=== PATIENT | female | born 1955 | race Caucasian/White ===

== ENCOUNTER 2016-12-21 14:17 | Emergency (ER) | payer OTHER ==
[~2016-12-21] VITALS: Ht 162.6 cm; Wt 52.2 kg
[2016-12-21 16:11] VITALS: BP 127/80
[2016-12-21] MEDS ORDERED: TETANUS-DIPTH-ACEL PERTUSSIS 0.5ML SYRG IM ONE (17:00)
== END 2016-12-21 17:02 | disposition home or self-care (01) ==
LOC: ER 14:22
DX: S61.111A Laceration without foreign body of right thumb with damage to nail, initial encounter (principal); S61.310A Laceration without foreign body of right index finger with damage to nail, initial encounter; S61.312A Laceration without foreign body of right middle finger with damage to nail, initial encounter; F19.90 Other psychoactive substance use, unspecified, uncomplicated; W23.0XXA Caught, crushed, jammed, or pinched between moving objects, initial encounter; Y93.89 Activity, other specified; Y92.89 Other specified places as the place of occurrence of the external cause; Y99.8 Other external cause status
CPT/HCPCS: 90471; 90715

== ENCOUNTER → 2021-11-04 | Outpatient (CLI) | payer BC ==
[2021-11-04 11:16] LABS: Basophils # (auto) 0 10 ^3/uL (0-0.2); Basophils % (auto) 0.4 % (0.0-2.0); Eosinophils # (auto) 0.1 10 ^3/uL (0-0.8); Hematocrit 48.8 % (36.0-46.0); Hemoglobin 16.1 g/dL (12.2-16.2); Lymphocytes # (auto) 2.6 10 ^3/uL (0.4-5.4); Lymphocytes % (auto) 36.9 % (10.0-50.0); Mean Corpuscular Hemoglobin 29.5 pg (28.0-32.0); Mean Corpuscular Volume 89.4 fL (80.0-100.0); Monocytes # (auto) 0.6 10 ^3/uL (0-1.3); Monocytes % (auto) 8.8 % (0.0-12.0); Neutrophils # (auto) 3.7 10 ^3/uL (1.6-8.6); Neutrophils % (auto) 52.9 % (37.0-80.0); Nucleated Red Blood Cells % 0.1 %; Red Blood Cells 5.45 10^6/uL (4.0-5.20); Red Cell Distribution Width 14.6 % (11.8-14.3); White Blood Cell 7.1 10^3/uL (4.4-10.8)
[2021-11-04 12:19] LABS: Albumin 3.6 g/dL (3.4-5.0); Calcium 9.2 mg/dL (8.5-10.1); Potassium 3.9 mmol/L (3.5-5.1)
[2021-11-04 12:24] LABS: Bilirubin, Total 0.7 mg/dL (0.2-1.0); Total Protein 7.1 g/dL (6.4-8.2)
== END | disposition home or self-care (01) ==
LOC: LAB 10:13
DX: R10.13 Epigastric pain (principal)
CPT/HCPCS: 36415; 80053; 82150; 83690; 85025

== ENCOUNTER 2022-11-11 02:49 | Emergency (ER) | payer BC ==
[~2022-11-11] VITALS: Ht 162.6 cm; Wt 51.0 kg
[2022-11-11 05:02] VITALS: BP 127/80
[2022-11-11] MEDS ORDERED: ACE3T PO (05:10)
[2022-11-11] MEDS ORDERED: HYDROcodone-ACET 5/325MG TAB PO ONE (05:15)
[2022-11-11] MEDS ORDERED: ONDANSETRON ODT 4 MG TAB PO ONE (05:15)
== END 2022-11-11 06:10 | disposition home or self-care (01) ==
LOC: ER 02:49
DX: S82.54XA Nondisplaced fracture of medial malleolus of right tibia, initial encounter for closed fracture (principal); F41.9 Anxiety disorder, unspecified; F17.210 Nicotine dependence, cigarettes, uncomplicated; W18.39XA Other fall on same level, initial encounter; Y93.89 Activity, other specified; Y92.89 Other specified places as the place of occurrence of the external cause; Y99.8 Other external cause status
CPT/HCPCS: 29515; 73610; 73630; 99284; Q0162

== ENCOUNTER 2023-02-04 21:34 | Inpatient (IN) | payer BC, MEDICARE ==
[~2023-02-04] VITALS: Ht 162.6 cm; Wt 57.5 kg
[~2023-02-04 21:34] MED LIST: ACE3T PO
[2023-02-04 22:30] VITALS: PULSE 78; RESP 20; O2SAT 93
[2023-02-04 22:35] LABS: Basophils # (auto) 0 10 ^3/uL (0-0.2); Basophils % (auto) 0.1 % (0.0-2.0); Eosinophils # (auto) 0.1 10 ^3/uL (0-0.8); Eosinophils % (auto) 0.8 % (0.0-7.0); Hematocrit 43.4 % (36.0-46.0); Hemoglobin 14.6 g/dL (12.2-16.2); Lymphocytes # (auto) 2.2 10 ^3/uL (0.4-5.4); Lymphocytes % (auto) 21.8 % (10.0-50.0); Mean Corpuscular Hgb Conc. 33.7 g/dL (32.0-36.0); Mean Corpuscular Volume 89.2 fL (80.0-100.0); Monocytes # (auto) 0.7 10 ^3/uL (0-1.3); Neutrophils # (auto) 7.1 10 ^3/uL (1.6-8.6); Neutrophils % (auto) 70.3 % (37.0-80.0); Red Blood Cells 4.87 10^6/uL (4.0-5.20); Red Cell Distribution Width 14.7 % (11.8-14.3); White Blood Cell 10.1 10^3/uL (4.4-10.8)
[2023-02-04 22:54] LABS: Alanine Aminotransferase 24 U/L (7-40); Albumin 4.1 g/dL (3.2-4.8); Alkaline Phosphatase 56 U/L (46-116); Anion Gap 5 (5-15); Aspartate Aminotransferase 28 U/L (13-40); BUN/Creatinine Ratio 20.6 (10.0-20.0); Bilirubin, Total 0.3 mg/dL (0.2-1.0); Blood Urea Nitrogen 14 mg/dL (9-23); Calcium 9.1 mg/dL (8.5-10.1); Carbon Dioxide 26 mmol/L (20-30); Chloride 110 mmol/L (98-107); Glucose 129 mg/dL (74-106); INR 0.99 (0.9-1.15); Partial Thromboplastin Time 24.8 SEC (24.5-34.5); Prothrombin Time 10.4 sec (9.3-11.8); Sodium 141 mmol/L (136-145); Total Protein 6.5 g/dL (5.7-8.2)
[2023-02-04] MEDS ORDERED: MORPHINE SULFATE 4 MG/ML SYR/VIAL IV ONE (23:15)
[2023-02-04] MEDS ORDERED: ONDANSETRON HCL 4 MG/2 ML VIAL IV ONE (23:15)
[2023-02-05] MEDS ORDERED: DOCUSATE SOD 100 MG CAP PO PRN (00:45)
[2023-02-05] MEDS ORDERED: ONDANSETRON HCL 4 MG/2 ML VIAL IV PRN (00:45)
[2023-02-05] MEDS: SODIUM CHLORIDE 0.9% 1,000 ML IV SCH ×4 (01:40→20:46)
[2023-02-05] MEDS: ENOXAPARIN SOD 40 MG/0.4 ML SYRINGE SC SCH ×2 (01:40→21:27)
[2023-02-05] MEDS: MORPHINE SULFATE INJ 2 MG/ml SYRG IV PRN ×3 (01:41→14:45)
[2023-02-05] MEDS ORDERED: MORPHINE SULFATE INJ 2 MG/ml SYRG IV PRN (03:30)
[2023-02-05] MEDS ORDERED: NITROGLYCERIN 0.4 MG SL TAB SL PRN (03:30)
[2023-02-05 06:43] LABS: Basophils # (auto) 0 10 ^3/uL (0-0.2); Basophils % (auto) 0.1 % (0.0-2.0); Eosinophils # (auto) 0 10 ^3/uL (0-0.8); Eosinophils % (auto) 0.2 % (0.0-7.0); Hematocrit 40.1 % (36.0-46.0); Hemoglobin 13.5 g/dL (12.2-16.2); Lymphocytes # (auto) 2.1 10 ^3/uL (0.4-5.4); Lymphocytes % (auto) 24.8 % (10.0-50.0); Mean Corpuscular Hemoglobin 30.1 pg (28.0-32.0); Mean Corpuscular Hgb Conc. 33.8 g/dL (32.0-36.0); Monocytes # (auto) 0.9 10 ^3/uL (0-1.3); Monocytes % (auto) 10.6 % (0.0-12.0); Neutrophils # (auto) 5.4 10 ^3/uL (1.6-8.6); Neutrophils % (auto) 64.3 % (37.0-80.0); Red Cell Distribution Width 14.4 % (11.8-14.3); White Blood Cell 8.5 10^3/uL (4.4-10.8)
[2023-02-05 07:08] LABS: Alanine Aminotransferase 20 U/L (7-40); Albumin 3.6 g/dL (3.2-4.8); Alkaline Phosphatase 54 U/L (46-116); Anion Gap 7 (5-15); Aspartate Aminotransferase 18 U/L (13-40); BUN/Creatinine Ratio 20.8 (10.0-20.0); Blood Urea Nitrogen 11 mg/dL (9-23); Calcium 8.6 mg/dL (8.7-10.4); Carbon Dioxide 26 mmol/L (20-30); Chloride 108 mmol/L (98-107); Glucose 120 mg/dL (74-106); Sodium 141 mmol/L (136-145)
[2023-02-05 07:09] LABS: Bilirubin, Total 0.5 mg/dL (0.2-1.0); Total Protein 5.8 g/dL (5.7-8.2)
[2023-02-05 07:45] VITALS: PULSE 77; RESP 16; O2SAT 97
[2023-02-05 12:21] LABS: Urine Bacteria NONE SEEN /hpf (None Seen); Urine Blood 2+ /uL (Negative); Urine Clarity Clear (Clear); Urine Color Yellow (Yellow); Urine Mucus FEW (None Seen); Urine Protein, UAD TRACE (Negative); Urine Specific Gravity 1.024 (1.001-1.035); Urine Urobilinogen Normal (Negative); Urine WBC 4 /hpf (0 - 5); Urine pH 5.5 (5.0-8.0)
[2023-02-05 14:55] VITALS: BP 101/68; PULSE 79; RESP 18; TEMP 98.3; O2SAT 95
[2023-02-05 15:40] VITALS: O2SAT 97
[2023-02-05] MEDS: HYDROcodone-ACET 5/325MG TAB PO PRN ×2 (18:31→22:32)
[2023-02-05 20:00] VITALS: BP 103/62; PULSE 68; PULSE 78; RESP 18
[2023-02-06] VITALS (9 sets, daily range): BP systolic 98–133; BP diastolic 56–94; PULSE 68–96; RESP 16–19; TEMP 97.6–98.9; O2SAT 93–100
[2023-02-06] MEDS: ACETAMINOPHEN 325 MG TAB PO PRN ×2 (02:36→21:32)
[2023-02-06] MEDS: SODIUM CHLORIDE 0.9% 1,000 ML IV SCH (05:16)
[2023-02-06] MEDS ORDERED: ceFAZolin 1GM/50ML 100 ML IV ONE (07:08)
[2023-02-06] MEDS ORDERED: BUPIVACAINE 0.25% INJ 50ML VIAL ONE (07:35)
[2023-02-06] MEDS ORDERED: TETRACAINE 1% INJ 2 ML VIAL IJ ONE (07:47)
[2023-02-06] MEDS ORDERED: fentaNYL CITRATE 100 MCG/2 ML VL ONE (07:52)
[2023-02-06] MEDS ORDERED: ePHEDrine SULFATE 50 MG/ML AMP ONE (07:53)
[2023-02-06] MEDS ORDERED: MORPHINE SULF PF 5 MG/10 ML VIAL ONE (07:53)
[2023-02-06] MEDS ORDERED: PROPOFOL 10 MG/ML 20 ML IV ONE (07:53)
[2023-02-06] MEDS ORDERED: GLYCOPYRROLATE 0.2 MG/ML 1ML VIAL ONE (07:53)
[2023-02-06] MEDS ORDERED: DexAMETHasone SOD PHOS 10MG/1ML VIAL INJ ONE (07:53)
[2023-02-06] MEDS ORDERED: ONDANSETRON HCL 4 MG/2 ML VIAL ONE (07:53)
[2023-02-06] MEDS ORDERED: MIDAZOLAM HCL 2MG/2ML 2ml VIAL (1mg/ml) ONE (07:56)
[2023-02-06 08:32] LABS: Basophils # (auto) 0 10 ^3/uL (0-0.2); Basophils % (auto) 0.1 % (0.0-2.0); Eosinophils # (auto) 0.2 10 ^3/uL (0-0.8); Eosinophils % (auto) 2.2 % (0.0-7.0); Hematocrit 40.8 % (36.0-46.0); Hemoglobin 13.4 g/dL (12.2-16.2); Lymphocytes # (auto) 1.4 10 ^3/uL (0.4-5.4); Mean Corpuscular Hemoglobin 29.6 pg (28.0-32.0); Mean Corpuscular Volume 89.8 fL (80.0-100.0); Monocytes # (auto) 0.8 10 ^3/uL (0-1.3); Monocytes % (auto) 9.7 % (0.0-12.0); Neutrophils # (auto) 5.7 10 ^3/uL (1.6-8.6); Nucleated Red Blood Cells % 0.1 %; Red Blood Cells 4.54 10^6/uL (4.0-5.20); Red Cell Distribution Width 14.7 % (11.8-14.3)
[2023-02-06] MEDS ORDERED: HYDROmorphone HCL 2 MG/ML VL/or syr ONE (08:46)
[2023-02-06 08:55] LABS: Alanine Aminotransferase 22 U/L (7-40); Albumin 3.4 g/dL (3.2-4.8); Alkaline Phosphatase 43 U/L (46-116); Anion Gap 4 (5-15); Aspartate Aminotransferase 23 U/L (13-40); Calcium 8.2 mg/dL (8.5-10.1); Carbon Dioxide 26 mmol/L (20-30); Chloride 111 mmol/L (98-107); Glucose 105 mg/dL (74-106); Potassium 3.8 mmol/L (3.5-5.1); Sodium 141 mmol/L (136-145); Total Protein 5.6 g/dL (5.7-8.2)
[2023-02-06 09:11] LABS: BUN/Creatinine Ratio 12.2 (10.0-20.0); Blood Urea Nitrogen < 5 mg/dL (9-23)
[2023-02-06] MEDS ORDERED: HYDROmorphone HCL 2 MG/ML VL/or syr IV PRN (09:45)
[2023-02-06] MEDS ORDERED: ONDANSETRON HCL 4 MG/2 ML VIAL IV PRN ×2 (09:45→13:15)
[2023-02-06] MEDS: ceFAZolin 1GM/50ML 50 ML IV SCH ×3 (11:28→21:33)
[2023-02-06] MEDS: LACTATED RINGER'S 1,000 ML IV SCH ×2 (11:29→20:00)
[2023-02-06] MEDS: KETOROLAC TROMETH 30 MG/ML 1ML VIAL IV SCH ×3 (11:55→23:38)
[2023-02-06] MEDS: ACCU-CHEK COMFORT CURVE STRIP VI SCH ×3 (11:55→21:37)
[2023-02-06] MEDS: ENOXAPARIN SOD 40 MG/0.4 ML SYRINGE SC SCH (21:32)
[2023-02-07 05:00] VITALS: BP 99/55; PULSE 90; RESP 18; TEMP 98.2; O2SAT 99
[2023-02-07] MEDS: ACCU-CHEK COMFORT CURVE STRIP VI SCH ×2 (06:03→11:23)
[2023-02-07] MEDS: KETOROLAC TROMETH 30 MG/ML 1ML VIAL IV SCH ×3 (06:03→17:41)
[2023-02-07] MEDS: LACTATED RINGER'S 1,000 ML IV SCH ×3 (06:03→21:58)
[2023-02-07 06:19] LABS: Basophils # (auto) 0 10 ^3/uL (0-0.2); Basophils % (auto) 0.1 % (0.0-2.0); Eosinophils # (auto) 0 10 ^3/uL (0-0.8); Eosinophils % (auto) 0.2 % (0.0-7.0); Hemoglobin 10.4 g/dL (12.2-16.2); Lymphocytes # (auto) 2.2 10 ^3/uL (0.4-5.4); Lymphocytes % (auto) 21.6 % (10.0-50.0); Mean Corpuscular Hemoglobin 30.1 pg (28.0-32.0); Mean Corpuscular Hgb Conc. 33.6 g/dL (32.0-36.0); Mean Corpuscular Volume 89.6 fL (80.0-100.0); Monocytes # (auto) 1.1 10 ^3/uL (0-1.3); Monocytes % (auto) 10.9 % (0.0-12.0); Neutrophils # (auto) 6.8 10 ^3/uL (1.6-8.6); Neutrophils % (auto) 67.2 % (37.0-80.0); Red Blood Cells 3.46 10^6/uL (4.0-5.20); Red Cell Distribution Width 14.1 % (11.8-14.3); White Blood Cell 10.1 10^3/uL (4.4-10.8)
[2023-02-07 06:36] LABS: Calcium 8.3 mg/dL (8.7-10.4); Chloride 108 mmol/L (98-107); Sodium 141 mmol/L (136-145)
[2023-02-07 06:37] LABS: Anion Gap 3 (5-15); Carbon Dioxide 30 mmol/L (20-30)
[2023-02-07 06:42] LABS: Blood Urea Nitrogen 6 mg/dL (9-23); Glucose 112 mg/dL (74-106)
[2023-02-07 08:15] VITALS: PULSE 83
[2023-02-07 09:00] VITALS: BP 98/65; PULSE 111; RESP 22; TEMP 98.9; O2SAT 97
[2023-02-07] MEDS: NICOTINE 21MG/24 HR TOPICAL PATCH TD SCH (09:19)
[2023-02-07] MEDS: HYDROcodone-ACET 5/325MG TAB PO PRN (09:40)
[2023-02-07 17:00] VITALS: BP 99/54; PULSE 101; RESP 20; TEMP 98.5; O2SAT 92
[2023-02-07 20:00] VITALS: PULSE 114; PULSE 77; RESP 20
[2023-02-07] MEDS: ACETAMINOPHEN 325 MG TAB PO PRN (21:54)
[2023-02-07] MEDS: ENOXAPARIN SOD 40 MG/0.4 ML SYRINGE SC SCH (21:54)
[2023-02-07 22:00] VITALS: BP 100/54; PULSE 112; RESP 18; TEMP 99; O2SAT 91
[2023-02-08] VITALS (7 sets, daily range): BP systolic 103–140; BP diastolic 60–88; PULSE 71–107; RESP 16–19; TEMP 97.9–98.9; O2SAT 87–100
[2023-02-08 06:04] LABS: Hemoglobin 9.7 g/dL (12.2-16.2)
[2023-02-08] MEDS: KETOROLAC TROMETH 30 MG/ML 1ML VIAL IV SCH ×4 (06:07→17:46)
[2023-02-08] MEDS: NICOTINE 21MG/24 HR TOPICAL PATCH TD SCH (08:22)
[2023-02-08] MEDS: LACTATED RINGER'S 1,000 ML IV SCH ×2 (12:00→21:31)
[2023-02-08] MEDS ORDERED: ALPR1TAB2 PO (12:08)
[2023-02-08] MEDS ORDERED: HYDR-4902 PO (12:08)
[2023-02-08] MEDS: ACETAMINOPHEN 325 MG TAB PO PRN ×2 (14:12→21:40)
[2023-02-08] MEDS: ENOXAPARIN SOD 40 MG/0.4 ML SYRINGE SC SCH (21:29)
[2023-02-09] MEDS: KETOROLAC TROMETH 30 MG/ML 1ML VIAL IV SCH ×3 (00:13→12:00)
[2023-02-09 04:58] VITALS: BP 133/90; PULSE 88; RESP 18; TEMP 98; O2SAT 88
[2023-02-09 07:03] LABS: Hematocrit 30.3 % (36.0-46.0); Hemoglobin 10.1 g/dL (12.2-16.2)
[2023-02-09 08:00] VITALS: PULSE 91
[2023-02-09] MEDS: LACTATED RINGER'S 1,000 ML IV SCH (08:00)
[2023-02-09] MEDS: NICOTINE 21MG/24 HR TOPICAL PATCH TD SCH (08:35)
[2023-02-09 09:00] VITALS: BP 121/64; PULSE 96; RESP 20; TEMP 98.9; O2SAT 95
== END 2023-02-09 12:48 | disposition home or self-care (01) | DRG 482 ==
LOC: EDBD 21:34 → ER 21:34 → TELE 02-05 03:27 → TELE-WESTW 02-05 15:36
PROVIDERS: ADMIT Nurse Practitioner Family; ATTEND Family Medicine
PROC: 0QS604Z Reposition Right Upper Femur with Internal Fixation Device, Open Approach (ICD-10-PCS; principal; 2023-02-06 08:05)
DX: S72.141A Displaced intertrochanteric fracture of right femur, initial encounter for closed fracture (principal); E04.2 Nontoxic multinodular goiter; F41.9 Anxiety disorder, unspecified; I27.20 Pulmonary hypertension, unspecified; F17.210 Nicotine dependence, cigarettes, uncomplicated; N20.0 Calculus of kidney; R16.0 Hepatomegaly, not elsewhere classified; I95.9 Hypotension, unspecified; W01.0XXA Fall on same level from slipping, tripping and stumbling without subsequent striking against object, initial encounter; Z79.1 Long term (current) use of non-steroidal anti-inflammatories (NSAID); Z79.899 Other long term (current) drug therapy; Y93.89 Activity, other specified; Y99.8 Other external cause status; Y92.009 Unspecified place in unspecified non-institutional (private) residence as the place of occurrence of the external cause; Z82.62 Family history of osteoporosis
CPT/HCPCS: 36415; 70450; 71045; 71250; 72125; 72131; 73502; 73610; 73630; 74176; 76000; 80048; 80053; 81001; 82533; 82962; 84443; 85014; 85018; 85025; 85610; 85730; 86850; 86900; 86901; 93005; 93306; 96374; 96375; 97110; 97116; 97163; 97530; G0378; J0690; J1100; J1885; J2250; J2405; J2704; J3490

== ENCOUNTER 2024-07-02 09:42 | Inpatient (IN) | payer BC, MEDICARE ==
[~2024-07-02] VITALS: Ht 160 cm; Wt 50.2 kg
--- NOTE | 2024-07-02 10:19 | ECG ---
[facility] Test Date: 2024-07-02 Test Time: 10:00:04 Pat Name: LEOPOLDO OPP Department: ER Room: Gender: F [employer] Worker: BETTE : 1955 Requested By: EMERGENCY EMERGENCY Order Number: [id number] Reading MD: Measurements Intervals [place] Rate: 90 P: 74 WA: 124 QRS: 79 QRSD: 103 T: 52 QT: 358 QTc: 438 Interpretive Statements Sinus rhythm Multiple ventricular premature complexes Please click the below link to view image of tracing.
--- NOTE | 2024-07-02 10:21 | ED.PDOC ---
GI ASSESSMENT HPI Comments 68 year old female presents to the ED with chief complaint of abdominal pain. Patient reports that she has been experiencing chronic epigastric abdominal pain for the past 6 months, but has not been able to come in due to her being busy with work and unable to take her until now. Patient relays that she had a right hip injury on 03/02/24 and believes her abdominal pain is related to this. Patient was noted to be 82% spO2 on RA, so she was placed on O2. Patient denies any N/V/D, dizziness, fever, chills, melena, or hematemesis. Chief Complaint: Abdominal Pain Time Seen by MD: 10:16 Primary Care Provider: WILY Reviewed Notes: Nurses Notes, Medications, Allergies Allergies: Coded Allergies: NO KNOWN ALLERGIES (Unverified , 11/09/15) Home Meds Active Scripts Acetaminophen W/ Codeine (Tylenol W/Cod #3) 1 Tab Tb, 1 TAB PO QIDP, #10 TAB 0 Refills Prov:MICHELL HUERTA 11/11/22 Information Source: Patient Mode of Arrival: Ambulatory Timing: Months Duration: Since onset Prehospital treatment: None Quality: Sharp Vomitus: None Stool: Normal Severity: Moderate Recent: None Recent Hx of: None Pain Location: Epigastric Modifying Factors: Nothing Associated sign and symptoms: Abdominal Pain Past Medical History PAST MEDICAL HISTORY: Anxiety Surgical History: [employer]ER History: No Pertinent [employer]EV[employer]ENDER History Family History Family History: Unknown Social History Smoker: Cigarettes, Less Than 1 Pack/Day Alcohol: Denies ETOH Use Drugs: Denies Drug Use Lives In: Home Constitutional: denies: chills, diaphoresis, fatigue, fever, malaise, sweats, weakness, others EENTM: denies: blurred vision, double vision, ear bleeding, ear discharge, ear drainage, ear pain, ear ringing, eye pain, eye redness, hearing loss, mouth pain, mouth swelling, nasal discharge, nose bleeding, nose congestion, nose pain, photophobia, tearing, throat pain, throat swelling, voice changes, others Respiratory: denies: cough, hemoptysis, orthopnea, SOB at rest, shortness of breath, SOB with excertion, stridor, wheezing, others Cardiovascular: denies: chest pain, dizzy spells, diaphoresis, Dyspnea on exertion, edema, irregular heart beat, left arm pain, lightheadedness, palpitations, PND, syncope, others Gastrointestinal: reports: abdominal pain; denies: abdomen distended, blood streaked bowels, constipated, diarrhea, dysphagia, difficulty swallowing, hematemesis, melena, nausea, poor appetite, poor fluid intake, rectal bleeding, rectal pain, vomiting, others Genitourinary: denies: abnormal vagina bleeding, burning, dyspareunia, dysuria, flank pain, frequency, hematuria, incontinence, pain, , vagina discharge, urgency, others Neurological: denies: dizziness, fainting, headache, left sided numbness, left sided weakness, numbness, paresthesia, pre-existing deficit, right sided numbness, right sided weakness, seizure, speech problems, tingling, tremors, weakness, others Musculoskeletal: denies: back pain, gout, joint pain, joint swelling, muscle pain, muscle stiffness, neck pain, others Integumetry: denies: bruises, change in color, change in hair/nails, dryness, laceration, lesions, lumps, rash, wounds, others Allergic/Immunocompromised: denies: Difficulty Healing, Frequent Infections, Hives, Itching, others Hematologic/Lymphatic: denies: anemia, blood clots, easy bleeding, easy bruising, swollen glands, others Endocrine: denies: excessive hunger, excessive sweating, excessive thirst, excessive urination, flushing, intolerance to cold, intolerance to heat, unexplained weight gain, unexplained weight loss, others Psychiatric: denies: anxiety, bipolar disorder, depression, hopeless, panic disorder, schizophrenia, sleepless, suicidal, others All Other Systems: Reviewed and Negative Physical Exam General Appearance: No Apparent Distress, Other (Chronically ill-appearing) HEENT: Normal ENT Inspection, PERRL/EOMI Neck: Full Range of Motion, Non-Tender, Normal, Normal Inspection Respiratory: Chest Non-Tender, Lungs Clear, No Accessory Muscle Use, No Respiratory Distress, Normal Breath Sounds Cardiovascular: No Edema, No JVD, No Murmur, No Gallop, Normal Peripheral Pulse s, Regular Rate/Rhythm Breast Exam: Deferred Gastrointestinal: No Organomegaly, No Pulsatile Mass, Normal Bowel Sounds, Soft, Tenderness (Epigastric tenderness) Genitalia: Deferred Pelvic: Deferred Rectal: Deferred Extremities: No calf tenderness, Normal capillary refill, Normal inspection, Normal range of motion, Non-tender, No pedal edema Musculoskeletal : Apperance: Normal Neurologic: Alert, advanced practice provider II-XII nml as Tested, No Motor Deficits, Normal Affect, Normal Mood, No Sensory Deficits Cerebellar Function: Normal Reflexes: Normal Skin: Dry, Normal Color, Warm Lymphatic: No Adenopathy Was a procedure done? Was a procedure done?: No GI differential Dx Differential Diagnosis: Appendicitis, Cholecystitis, Constipation, Diverticular disease, Gastritis/PUD, Gastroenteritis, Hepatitis, Pancreatitis, PID, UTI, Urolithiasis, Electrolyte Imbalance, Food Poisoning, Bacterial, Renal Failure X-Ray, Labs, Meds, VS Vital Signs Date Time Temp Pulse Resp B/P (MAP) Pulse Ox O2 Delivery O2 Flow Rate FiO2 07/02/24 12:14 97.3 92 18 116/72 (87) 95 97.3 07/02/24 12:14 92 18 99 Room Air 2.0 07/02/24 10:00 90 07/02/24 10:00 99.0 100 19 113/91 (98) 92 07/02/24 09:59 19 92 Room Air* 0 21 Lab Test 07/02/24 13:44 07/02/24 11:10 07/02/24 10:24 07/02/24 10:06 Range/Units Troponin I High Sensitivity < 3 L < 3 L < 3 L </=34 ng/L White Blood Count 6.6 4.4-10.8 10^3/uL Red Blood Count 5.78 H 4.0-5.20 10^6/uL Hemoglobin 16.9 H 12.2-16.2 g/dL Hematocrit 52.1 H 36.0-46.0 % Mean Corpuscular Volume 90.1 80.0-100.0 fL Mean Corpuscular Hemoglobin 29.2 28.0-32.0 pg Mean Corpuscular Hemoglobin Concent 32.4 32.0-36.0 g/dL Red Cell Distribution Width 14.8 H 11.8-14.3 % Platelet Count 235 140-450 10^3/uL Mean Platelet Volume 6.9 6.9-10.8 fL Neutrophils (%) (Auto) 64.1 37.0-80.0 % Lymphocytes (%) (Auto) 27.8 10.0-50.0 % Monocytes (%) (Auto) 6.4 0.0-12.0 % Eosinophils (%) (Auto) 1.4 0.0-7.0 % Basophils (%) (Auto) 0.3 0.0-2.0 % Neutrophils # (Auto) 4.3 1.6-8.6 10 ^3/uL Lymphocytes # (Auto) 1.8 0.4-5.4 10 ^3/uL Monocytes # (Auto) 0.4 0-1.3 10 ^3/uL Eosinophils # (Auto) 0.1 0-0.8 10 ^3/uL Basophils # (Auto) 0 0-0.2 10 ^3/uL Nucleated Red Blood Cells 0.2 % Sodium Level 140 136-145 mmol/L Potassium Level 4.0 3.5-5.1 mmol/L Chloride Level 106 98-107 mmol/L Carbon Dioxide Level 28 20-31 mmol/L Anion Gap 6 5-15 Blood Urea Nitrogen 9 9-23 mg/dL Creatinine 0.69 0.550-1.02 mg/dL Glomerular Filtration Rate Calc 94 >90 mL/min BUN/Creatinine Ratio 13.0 10.0-20.0 Serum Glucose 99 74-106 mg/dL Calcium Level 10.0 8.7-10.4 mg/dL Urine Color Light-yellow Yellow Urine Clarity Clear Clear Urine pH 5.0 5.0-9.0 Urine Specific [place] 1.014 1.001-1.035 Urine Protein Negative Negative Urine Ketones Negative Negative Urine Blood Trace H Negative /uL Urine Nitrite Negative Negative Urine Bilirubin Negative Negative Urine Urobilinogen Normal Negative mg/dL Urine Leukocyte Esterase Negative Negative /uL Urine RBC 1 0 - 4 /hpf Urine Microscopic WBC 1 0-5 /HPF Urine Squamous Epithelial Cells Few <5 /hpf Urine Bacteria Few H None Seen /hpf Urine Mucus Few None Seen Urine Glucose Normal Normal mg/dL Time of 1ST Reevaluation: 11:16 Reevaluation 1ST: Unchanged Patient Education/Counseling: Diagnosis, Treatment Family Education/Counseling: No Family Present Additional Information The following tests were ordered, and results were reviewed by me: Additional Information was gathered from interviewing the following independent historians: I reviewed and agreed with the following test results read by other providers: I discussed treatment and results with medical personnel and: Departure 1 Departure Time of Disposition: 15:07 (Patient presented with abdominal pain that was concerning for possible appendicits, gastritis, cholecystitis, colitis, gastroen teritis, sbo, or orther possible surgical emergency. Data: 1. I ordered and reviewed the result of at least 3 labs including a CBC, BMP, and Urinalysis. 2. I independently interpreted the following tests: CT Abdoment and Pelvis is concerning for renal colic .Risk:This patient has a high risk of morbidity due to further diagnostic testing or treatment and may suffer from an acute ab dominal process disorder. Workup reveals intractable abdominal pain and renal colic and patient should be admitted for further workup. and possible expert consultation. ) Impression: Primary Impression: Intractable abdominal pain Additional Impressions: Renal colic Compression fracture of T11 vertebra Qualified Codes: S22.080A - Wedge compression fracture of T11-T12 vertebra, initial encounter for closed fracture Disposition: ADMITTED INPATIENT Admit to: Med Surg Condition: Serious Critical Care Note Critical Care Time?: Yes Critical care comment: Intractable abdominal pain Authorized and Performed by: Rodo Delgado MD Total critical care time: Approximately 39 minutes Due to a high probability of clinically significant, life threatening deterioration, the patient required my highest level of preparedness to intervene emergently and I personally spent this critical care time directly and personally managing the patient. This critical care time included obtaining a history; examining the patient; pulse oximetry; ordering and review of studies; arranging urgent treatment with development of a management plan; evaluation of patient's response to treatment; frequent reassessment; and, discussions with other providers. This critical care time was performed to assess and manage the high probability of imminent, life-threatening deterioration that could result in multi-organ failure. It was exclusive of separately billable procedures and treating other patients and teaching time. Please see my other sections and the rest of the note for further information on patient assessment and treatment. Stability Stability form required: No Heart Score Heart Score: Heart Score Response (Comments) Value History N/A 0 EKG N/A 0 Age N/A 0 Risk Factors N/A 0 Troponin N/A 0 Total 0 I personally scribed for RODO DELGADO MD ([email or web address]) on 07/02/24 at 10:21. Electronically submitted by Isrrael Russell ([email or web address]). RODO DELGADO MD Jul 02, 2024 10:21
[2024-07-02 10:34] LABS: Urine Bacteria FEW /hpf (None Seen); Urine Blood TRACE /uL (Negative); Urine Clarity Clear (Clear); Urine Color Light-Yellow (Yellow); Urine Mucus FEW (None Seen); Urine Protein, UAD Negative (Negative); Urine Specific Gravity 1.014 (1.001-1.035); Urine Squamous Epithelial Cell FEW /hpf (<5); Urine Urobilinogen Normal (Negative); Urine WBC 1 /HPF (0-5)
[2024-07-02 10:45] LABS: Basophils # (auto) 0 10 ^3/uL (0-0.2); Basophils % (auto) 0.3 % (0.0-2.0); Eosinophils # (auto) 0.1 10 ^3/uL (0-0.8); Eosinophils % (auto) 1.4 % (0.0-7.0); Hematocrit 52.1 % (36.0-46.0); Hemoglobin 16.9 g/dL (12.2-16.2); Lymphocytes # (auto) 1.8 10 ^3/uL (0.4-5.4); Lymphocytes % (auto) 27.8 % (10.0-50.0); Mean Corpuscular Hemoglobin 29.2 pg (28.0-32.0); Mean Corpuscular Hgb Conc. 32.4 g/dL (32.0-36.0); Mean Corpuscular Volume 90.1 fL (80.0-100.0); Monocytes # (auto) 0.4 10 ^3/uL (0-1.3); Monocytes % (auto) 6.4 % (0.0-12.0); Neutrophils # (auto) 4.3 10 ^3/uL (1.6-8.6); Neutrophils % (auto) 64.1 % (37.0-80.0); Nucleated Red Blood Cells % 0.2 %; Platelet Count (auto) 235 10^3/uL (140-450); Red Blood Cells 5.78 10^6/uL (4.0-5.20); Red Cell Distribution Width 14.8 % (11.8-14.3); White Blood Cell 6.6 10^3/uL (4.4-10.8)
[2024-07-02 10:54] LABS: Chloride 106 mmol/L (98-107); Sodium 140 mmol/L (136-145)
[2024-07-02 10:55] LABS: Anion Gap 6 (5-15); Carbon Dioxide 28 mmol/L (20-31)
[2024-07-02 11:00] LABS: Glucose 99 mg/dL (74-106)
[2024-07-02 11:01] LABS: Blood Urea Nitrogen 9 mg/dL (9-23)
[2024-07-02] MEDS: IOHEXOL 300 MG/ML 100ML BOTTLE IJ ONE (12:22)
--- NOTE | 2024-07-02 14:04 | DVH ---
Procedure: CT CT AB PEL WITH IV CON ONLY 07/02/2024 12:31 PM Indication: abdominal pain Comparison Study: None Technique: Axial images were obtained and reformatted in coronal and sagittal planes. All CT scans at this medical facility are performed using dose modulation techniques as appropriate t o a performed exam including the following: Automated exposure control was utilized; adjustment of th e MA and/or KV according to patient size; and use of iterative reconstruction technique. CT Dose: CTDI volume is 5.14 mGy. Dose-length product is 247.2 mGy*cm FINDINGS: Lower Chest: Unremarkable. Hepatobiliary: Moderate hepatomegaly. No focal lesion. No intrahepatic ductal dilatation. Spleen: Unremarkable. Pancreas: Unremarkable. Adrenal Glands: Unremarkable. tract: The kidneys are normal in size bilaterally without hydronephrosis . A 2 mm nonobstructing stone seen in the lower pole of the right kidney. Few subcentimeter left renal cyst noted. The urina ry bladder is unremarkable. GI tract: The stomach is grossly normal in appearance. No evidence of small bowel obstruction. The la rge bowel is unremarkable. The appendix is normal. Lymphatics: No mesenteric, retroperitoneal or periportal lymphadenopathy. Vasculature: Aorta is normal in caliber. Scattered calcified plaques are noted. Pelvic Organs: Unremarkable Bones/soft tissues: Orthopedic hardware is seen in the right proximal femur. Mild degenerative grade 1 anterolisthesis of L4 on L5. Mild chronic appearing anterior compression deformity T11. Severe r eduction of L5-S1 disc height. Other: None. IMPRESSION: 1. No CT evidence for acute intra-abdominal or intrapelvic process.
[2024-07-02 16:00] VITALS: PULSE 100; RESP 18; O2SAT 95
[2024-07-02] MEDS: MORPHINE SULFATE 4 MG/ML SYR/VIAL IV ONE (16:24)
[2024-07-02] MEDS: ONDANSETRON HCL 4 MG/2 ML VIAL IV ONE (16:24)
[2024-07-02] MEDS: PANTOPRAZOLE 40 MG/10 ML VIAL INJ IV ONE (16:24)
[2024-07-02] MEDS: SODIUM CHLORIDE 0.9% 1,000 ML IV ONE (16:25)
[2024-07-02] MEDS ORDERED: MORPHINE SULFATE INJ 2 MG/ml SYRG IV PRN (21:15)
[2024-07-02] MEDS ORDERED: NITROGLYCERIN 0.4 MG SL TAB SL PRN (21:15)
[2024-07-02] MEDS ORDERED: ONDANSETRON HCL 4 MG/2 ML VIAL IV PRN (21:15)
[2024-07-02] MEDS ORDERED: LORazepam 2MG/ML-1ML VIAL IV PRN (21:30)
[2024-07-02] MEDS: IOHEXOL 350 MG/ML 100ML IJ ONE (21:36)
[2024-07-02] MEDS: SODIUM CHLORIDE 0.9% 1,000 ML IV SCH (21:37)
[2024-07-02 21:41] LABS: Magnesium 2.2 mg/dL (1.6-2.6)
[2024-07-02] MEDS: SODIUM CHLOR 0.9% PF (SALINE LOCK) 10ML VIAL/SYR IV SCH (21:46)
--- NOTE | 2024-07-02 22:10 | DVHHPRES ---
History of Present Illness Resident Creating Document: RAEANN NUNEZ RESIDENT History of Present Illness OPP,LEOPOLDO Esperanza 68-year-old female with no significant PMH except anxiety presented to the ED with the chief complaints of abdominal pain. Patient reported she has been experiencing epigastric abdominal pain for almost 6 months, eating makes it better, weight loss over 6 months 15-20 lb. Patient reported due to her being busy with work and unable to take her to hospital until now. On my assessment patient denies fever, nausea, vomiting, chest pain, shortness of breath, palpitations, dizziness and other acute associated symptoms. PMH: Anxiety PSH: Family history: Not significant Social history: Lives with family. Smokes less than 1 pack per day for 20 years but denies alcohol and other drug abuse Allergies: No known allergies Review of Systems Eyes: No: Pain, Vision change, Conjunctivae inflammation, Eyelid inflammation, Other, Redness ENT: No: Ear pain, Ear discharge, Nose pain, Nose discharge, Nose congestion, Mouth pain, Mouth swelling, Throat pain, Throat swelling, Other Respiratory: No: Cough, Dry, Shortness of breath, SOB with excertion, Wheezing, Hemoptysis, Pleuritic Pain, Sputum, Wheezing, Other Cardiovascular: No: Chest Pain, Palpitations, Orthopnea, Paroxysmal Noc. Dyspnea, Edema, Lt Headedness, Other Gastrointestinal: Abdominal Pain Genitourinary: No Dysuria, No Frequency, No Incontinence, No Hematuria, No Retention, No Other Musculoskeletal: No: other, neck pain, shoulder pain, arm pain, back pain, hand pain, leg pain, foot pain Skin: No: Rash, Lesions, Jaundice, Bruising, Other Other Anxiety Allergies: Coded Allergies: NO KNOWN ALLERGIES (Unverified , 11/09/15) Medications Current Medications Medications Dose Ordered Sig/Dileep Route Start Time Stop Time Status Last Admin Dose Admin Sodium Chloride 10 ml Q8HR IV 07/02/24 22:00 07/02/24 21:46 10 ML Sodium Chloride 1,000 ml @ 60 mls/hr [id number] IV 07/02/24 21:15 07/02/24 21:37 60 MLS/HR Ondansetron HCl 4 mg Q4HP PRN IV 07/02/24 21:15 Acetaminophen 650 mg Q6HP PRN PO 07/02/24 21:15 Nitroglycerin 0.4 mg Q5MINP PRN SL 07/02/24 21:15 Morphine Sulfate 2 mg Q30M PRN IV 07/02/24 21:15 Pantoprazole Sodium 40 mg DAILY IV 07/03/24 10:00 Lorazepam 1 mg Q6HP PRN IV 07/02/24 21:30 Exam Vital Signs Vital Signs Date Time Temp Pulse Resp B/P (MAP) Pulse Ox O2 Delivery O2 Flow Rate FiO2 07/02/24 20:00 98.2 83 23 114/76 (89) 95 98.2 07/02/24 19:30 Nasal Cannula* 2 28 Exam Pt is lying on bed General Appearance: Alert, Oriented X3, Cooperative, mild distress HEENT: Atraumatic, Mucous membranes moist/pink Respiratory: Clear to auscultation, Normal air movement, No added sounds Cardiovascular: Regular rate, Normal S1, Normal S2, No murmurs Abdominal: Active bowel sounds, Soft, no distention, no tenderness Extremities: No edema, Normal pulses, No tenderness/swelling Skin: No Significant rash, except past surgical scars Neuro: Normal speech, sensorimotor deficits none Psych/Mental Status: Mental status NL, Mood NL Nurse was there as sharperone during examination frank. Smokes less than 1 pack per day for 20 years but denies alcohol and other drug abuse Allergies: No known allergies Labs/Xrays Labs Test 07/02/24 21:47 07/02/24 13:44 07/02/24 10:24 07/02/24 10:06 Range/Units Magnesium Level 2.2 1.6-2.6 mg/dL Troponin I High Sensitivity < 3 L </=34 ng/L Lipase 56 H 12-53 U/L White Blood Count 6.6 4.4-10.8 10^3/uL Red Blood Count 5.78 H 4.0-5.20 10^6/uL Hemoglobin 16.9 H 12.2-16.2 g/dL Hematocrit 52.1 H 36.0-46.0 % Mean Corpuscular Volume 90.1 80.0-100.0 fL Mean Corpuscular Hemoglobin 29.2 28.0-32.0 pg Mean Corpuscular Hemoglobin Concent 32.4 32.0-36.0 g/dL Red Cell Distribution Width 14.8 H 11.8-14.3 % Platelet Count 235 140-450 10^3/uL Mean Platelet Volume 6.9 6.9-10.8 fL Neutrophils (%) (Auto) 64.1 37.0-80.0 % Lymphocytes (%) (Auto) 27.8 10.0-50.0 % Monocytes (%) (Auto) 6.4 0.0-12.0 % Eosinophils (%) (Auto) 1.4 0.0-7.0 % Basophils (%) (Auto) 0.3 0.0-2.0 % Neutrophils # (Auto) 4.3 1.6-8.6 10 ^3/uL Lymphocytes # (Auto) 1.8 0.4-5.4 10 ^3/uL Monocytes # (Auto) 0.4 0-1.3 10 ^3/uL Eosinophils # (Auto) 0.1 0-0.8 10 ^3/uL Basophils # (Auto) 0 0-0.2 10 ^3/uL Nucleated Red Blood Cells 0.2 % Sodium Level 140 136-145 mmol/L Potassium Level 4.0 3.5-5.1 mmol/L Chloride Level 106 98-107 mmol/L Carbon Dioxide Level 28 20-31 mmol/L Anion Gap 6 5-15 Blood Urea Nitrogen 9 9-23 mg/dL Creatinine 0.69 0.550-1.02 mg/dL Glomerular Filtration Rate Calc 94 >90 mL/min BUN/Creatinine Ratio 13.0 10.0-20.0 Serum Glucose 99 74-106 mg/dL Calcium Level 10.0 8.7-10.4 mg/dL B-Type Natriuretic Peptide 61.75 0-100 pg/mL Urine Color Light-yellow Yellow Urine Clarity Clear Clear Urine pH 5.0 5.0-9.0 Urine Specific [place] 1.014 1.001-1.035 Urine Protein Negative Negative Urine Ketones Negative Negative Urine Blood Trace H Negative /uL Urine Nitrite Negative Negative Urine Bilirubin Negative Negative Urine Urobilinogen Normal Negative mg/dL Urine Leukocyte Esterase Negative Negative /uL Urine RBC 1 0 - 4 /hpf Urine Microscopic WBC 1 0-5 /HPF Urine Squamous Epithelial Cells Few <5 /hpf Urine Bacteria Few H None Seen /hpf Urine Mucus Few None Seen Urine Glucose Normal Normal mg/dL Assessment/Plan Assessment/Plan # epigastric abdominal pain rule out PUD # rule out PUD Vs GI malignancy -CT abdominal pelvis showed no acute changes -currently on Protonix -giving IVF and on NPO -consider GI evaluation if needed # marijuana abuse disorder # tobacco dependence # tobacco abuse disorder -counseled regarding cessation for more than 17 minute # anxiety -currently giving Ativan PUD PPX: Protonix VTE PPX: SCDs Diet: NPO Goals of care discussed with the patient for more than 29 minutes: Full code status Case discussed with Dr. Landeros, patient and nurse. Plan discussed with: Patient My Orders Orders - RAEANN NUNEZ RESIDENT Procedure Category Date Status Time Admit ADMIT 07/02/24 Transmitted 21:06 Allergies AMINATA 07/02/24 In Process 21:06 Code Status CODE 07/02/24 Transmitted 21:06 Sodium Chloride Lock PHA 07/02/24 In Process (Saline Lock Ns) 22:00 Sodium Chloride 0.9% PHA 07/02/24 In Process 21:15 Ondansetron Hcl PHA 07/02/24 In Process (Zofran) 21:15 Complete Blood Count LAB 07/03/24 Verified 04:00 Comprehensive LAB 07/03/24 Verified Metabolic Panel 04:00 Npo (Nothing By DIET 07/03/24 Transmitted Mouth) Diet Breakfast Condition: Stable AMINATA 07/02/24 In Process 21:06 Acetaminophen Tablet PHA 07/02/24 In Process (Tylenol Tablet) 21:15 Nitroglycerin PHA 07/02/24 In Process Sublingual (Ntrostat 21:15 Morphine Sulfate PHA 07/02/24 In Process Injection 21:15 Oxygen By Nasal RT 07/02/24 Transmitted Cannula 21:06 Stat Ekg For Chest AMINATA 07/02/24 In Process Pain 21:06 Notify Md Of Changes AMINATA 07/02/24 In Process From Base 21:06 Chest Xray 1 View XY 07/02/24 Logged 21:17 Ammonia LAB 07/02/24 In Process 21:17 Covid19 Antigen [place] LAB 07/02/24 Logged Drug Screen LAB 07/02/24 Logged 21:17 Rapid Influenza A&B LAB 07/02/24 Logged 21:17 Thyroid Stimulating LAB 07/02/24 In Process Hormone 21:17 Pantoprazole PHA 07/03/24 In Process (Protonix) 10:00 Lorazepam 2mg/Ml Inj PHA 07/02/24 In Process (Ativan Inj) 21:30 Date of Service: Jul 02, 2024 Billing Provider: LORENZO LANDEROS MD Common Visit Codes: 66812-[id number] INP/OBS CARE (HIGH) Secondary Visit Codes: [id number] CARE PLAN 30 MINUTES RAEANN NUNEZ RESIDENT Jul 02, 2024 22:10 LORENZO LANDEROS MD Jul 03, 2024 10:14
[2024-07-02 22:33] LABS: Cannabinoid Screen, Urine Pos (NEGATIVE)
[2024-07-02 22:43] LABS: Amphetamine Screen, Urine Neg (NEGATIVE); Barbiturate Scree,Urine Neg (NEGATIVE); Benzodiazephine Screen, Urine Neg (NEGATIVE); Cocaine Screen, Urine Neg (NEGATIVE); Opiate Scree,Urine Neg (NEGATIVE); Phencyclidine Screen, Urine Neg (NEGATIVE)
--- NOTE | 2024-07-02 23:53 | DVH ---
CHEST RADIOGRAPH Indication: pna Technique: Single frontal view of the chest was obtained Comparison: XY CHEST PORTABLE on DOS: 02/06/23 FINDINGS: Lines and Tubes: None Lungs: Clear Pleura: No effusion. No pneumothorax. Cardiomediastinal contours: Unremarkable Bones: Unremarkable IMPRESSION: Clear lungs.
[2024-07-03] MEDS: ACETAMINOPHEN 325 MG TAB PO PRN (01:23)
[2024-07-03 05:27] LABS: Basophils # (auto) 0 10 ^3/uL (0-0.2); Basophils % (auto) 0.2 % (0.0-2.0); Eosinophils # (auto) 0.1 10 ^3/uL (0-0.8); Eosinophils % (auto) 2.2 % (0.0-7.0); Hematocrit 46.8 % (36.0-46.0); Lymphocytes # (auto) 2.6 10 ^3/uL (0.4-5.4); Lymphocytes % (auto) 41.1 % (10.0-50.0); Mean Corpuscular Hemoglobin 28.9 pg (28.0-32.0); Mean Corpuscular Hgb Conc. 32.1 g/dL (32.0-36.0); Mean Corpuscular Volume 89.9 fL (80.0-100.0); Monocytes # (auto) 0.5 10 ^3/uL (0-1.3); Monocytes % (auto) 8.2 % (0.0-12.0); Neutrophils # (auto) 3.1 10 ^3/uL (1.6-8.6); Neutrophils % (auto) 48.3 % (37.0-80.0); Nucleated Red Blood Cells % 0.2 %; Platelet Count (auto) 200 10^3/uL (140-450); Red Cell Distribution Width 14.7 % (11.8-14.3); White Blood Cell 6.4 10^3/uL (4.4-10.8)
[2024-07-03 05:47] LABS: Alanine Aminotransferase 22 U/L (7-40); Alkaline Phosphatase 58 U/L (46-116); Anion Gap 8 (5-15); Aspartate Aminotransferase 23 U/L (13-40); Bilirubin, Total 0.8 mg/dL (0.2-1.0); Calcium 9.4 mg/dL (8.7-10.4); Carbon Dioxide 24 mmol/L (20-31); Glucose 88 mg/dL (74-106); Potassium 3.9 mmol/L (3.5-5.1); Sodium 141 mmol/L (136-145)
[2024-07-03 05:48] LABS: Blood Urea Nitrogen 7 mg/dL (9-23); Chloride 109 mmol/L (98-107)
[2024-07-03 08:07] VITALS: PULSE 82; RESP 17; O2SAT 95
[2024-07-03] MEDS: SUCRALFATE 1 GM/10 ML ORAL SUSP PO SCH (09:08)
[2024-07-03] MEDS: PANTOPRAZOLE 40 MG/10 ML VIAL INJ IV SCH (10:15)
[2024-07-03 10:27] VITALS: RESP 18
[2024-07-03 10:56] VITALS: BP 127/77; PULSE 89; RESP 18; TEMP 98.8; O2SAT 93
[2024-07-03 11:23] LABS: Free T4 (Free Thyroxine) 1.2 ng/dL (0.89-1.76); T3 Total 1.05 ng/mL (0.60-1.81)
[2024-07-03 13:00] VITALS: BP 121/72; PULSE 84; RESP 16; TEMP 98.8; O2SAT 94
--- NOTE | 2024-07-03 13:09 | DVHINCON2 ---
GI Consult Consult Note GI consult note Date of Consultation: 07/03/2024 Chief Complaint: Epigastric pain Referring Physician: Dr. Mathis H&P: 68-year-old female presented to ER with epigastric abdominal pain ongoing for last six months Per patient she does not have epigastric pain at this time No nausea or vomiting. No history of GERD BM two days ago. No melena or red blood in stool Patient has weight loss of 15-20 lb in the past six months SP right hip surgery status post fall, and patient admits to having epigastric pain after this Patient denies use of NSAIDs No EGD or colonoscopy in past Past Medical History: Anxiety Past Surgical History: , right hip Social History: Smoker: Cigarettes, Less Than 1 Pack/Day Alcohol: Denies ETOH Use Drugs: Denies Drug Use Lives In: Home Family History: Unknown Review of Systems: Constitutional: no fever, chill, weight loss HEENT: no eye pain, no hearing loss, no oral lesion, no scleral icterus Heart: no chest pain, no chest pressure Lung: no cough, no dyspnea with exertion Abdomen: see HPI Physical exam: General: NAD, AAOX3 Chest: lung jones clear to auscultation Heart: RRR, no murmur Abdomen: non-distended, + epigastric tenderness to palpation, +BS Labs: Labs Test 07/03/24 05:05 07/02/24 23:51 07/02/24 21:47 07/02/24 13:44 Range/Units White Blood Count 6.4 4.4-10.8 10^3/uL Red Blood Count 5.20 4.0-5.20 10^6/uL Hemoglobin 15.0 12.2-16.2 g/dL Hematocrit 46.8 #H 36.0-46.0 % Mean Corpuscular Volume 89.9 80.0-100.0 fL Mean Corpuscular Hemoglobin 28.9 28.0-32.0 pg Mean Corpuscular Hemoglobin Concent 32.1 32.0-36.0 g/dL Red Cell Distribution Width 14.7 H 11.8-14.3 % Platelet Count 200 140-450 10^3/uL Mean Platelet Volume 7.2 6.9-10.8 fL Neutrophils (%) (Auto) 48.3 37.0-80.0 % Lymphocytes (%) (Auto) 41.1 10.0-50.0 % Monocytes (%) (Auto) 8.2 0.0-12.0 % Eosinophils (%) (Auto) 2.2 0.0-7.0 % Basophils (%) (Auto) 0.2 0.0-2.0 % Neutrophils # (Auto) 3.1 1.6-8.6 10 ^3/uL Lymphocytes # (Auto) 2.6 0.4-5.4 10 ^3/uL Monocytes # (Auto) 0.5 0-1.3 10 ^3/uL Eosinophils # (Auto) 0.1 0-0.8 10 ^3/uL Basophils # (Auto) 0 0-0.2 10 ^3/uL Nucleated Red Blood Cells 0.2 % Sodium Level 141 136-145 mmol/L Potassium Level 3.9 3.5-5.1 mmol/L Chloride Level 109 H 98-107 mmol/L Carbon Dioxide Level 24 20-31 mmol/L Anion Gap 8 5-15 Blood Urea Nitrogen 7 L 9-23 mg/dL Creatinine 0.50 L 0.550-1.02 mg/dL Glomerular Filtration Rate Calc 101 >90 mL/min BUN/Creatinine Ratio 14.0 10.0-20.0 Serum Glucose 88 74-106 mg/dL Calcium Level 9.4 8.7-10.4 mg/dL Magnesium Level 2.1 1.6-2.6 mg/dL Total Bilirubin 0.8 0.2-1.0 mg/dL Aspartate Amino Transferase (AST) 23 13-40 U/L Alanine Aminotransferase (ALT) 22 7-40 U/L Alkaline Phosphatase 58 46-116 U/L Total Protein 6.0 5.7-8.2 g/dL Albumin 4.0 3.2-4.8 g/dL Vitamin B12 Level 533 211-911 pg/mL Vitamin D 25-Hydroxy 53.9 30.0-100 ng/mL Free Thyroxine (T4) Calculated 1.20 0.89-1.76 ng/dL Total Triiodothyronine (TT3) 1.05 0.60-1.81 ng/mL Ammonia 23 11-32 umol/L Plasma/Serum Blood Alcohol < 3.0 <10 mg/dL Troponin I High Sensitivity < 3 L </=34 ng/L Lipase 56 H 12-53 U/L Thyroid Stimulating Hormone (TSH) 0.48 L 0.55-4.78 uIU/mL Test 07/02/24 10:24 07/02/24 10:06 Range/Units B-Type Natriuretic Peptide 61.75 0-100 pg/mL Urine Color Light-yellow Yellow Urine Clarity Clear Clear Urine pH 5.0 5.0-9.0 Urine Specific [place] 1.014 1.001-1.035 Urine Protein Negative Negative Urine Ketones Negative Negative Urine Blood Trace H Negative /uL Urine Nitrite Negative Negative Urine Bilirubin Negative Negative Urine Urobilinogen Normal Negative mg/dL Urine Leukocyte Esterase Negative Negative /uL Urine RBC 1 0 - 4 /hpf Urine Microscopic WBC 1 0-5 /HPF Urine Squamous Epithelial Cells Few <5 /hpf Urine Bacteria Few H None Seen /hpf Urine Mucus Few None Seen Urine Glucose Normal Normal mg/dL Urine Opiates Screen Neg NEGATIVE Urine Fentanyl Screen Neg NEGATIVE Urine Barbiturates Screen Neg NEGATIVE Urine Phencyclidine Screen Neg NEGATIVE Urine Amphetamines Screen Neg NEGATIVE Urine Benzodiazepines Screen Neg NEGATIVE Urine Cocaine Screen Neg NEGATIVE Urine Cannabinoids Screen Pos NEGATIVE Imaging: CT abdomen pelvis IMPRESSION: 1. No CT evidence for acute intra-abdominal or intrapelvic process. Assessment: Acute Abdominal pain Weight loss Marijuana use Plan: -discussed with Dr. Mojica Recommended plan for EGD for tomorrow, patient at this time does not want to have this test done Medical management with Protonix and Carafate recommended Full liquid diet, advance as tolerated Patient's symptoms improve Outpatient follow-up in GI clinic in four weeks recommended for elective GI procedures Discussed plan with patient and RN Thank you for this consult Date of Service: Jul 03, 2024 Billing Provider: DYLAN MORALES Common Visit Codes: CONSULT ONLY Consultation Codes: [id number] CONSULT <60MIN DYLAN MORALES Jul 03, 2024 13:08
--- NOTE | 2024-07-03 13:14 | DVHINCON2 ---
Date of service: Jul 03, 2024 Reason for Consultation Pelvic pain History of Present Illness History Source: Patient Exam Limitations: No limitations HPI Danyelle is a 68 y/o female patient with a past medical history of anxiety who presented to the ED after presenting worsening epigastric pain. Patient denies pelvic pain, vaginal bleeding or secretion, no sexual activity. She also denies SOB, chest pain, diarrhea, constipation or urinary symptoms. Patient smokes approximately 20 cigarettes per week. She smokes marijuana every night. Pap smear: 2020, normal per patient Mammogram: 2020, normal LMP: at 44 years of age. x1 (40 years ago) No sexual activity. Home Meds No Active Prescriptions or Reported Meds Current Meds Vitamin D, C, Zinc Chief Complaint of Abdominal/F: Abdominal pain Onset/Duration of Abd/Flank Pa: Constant, Waxing, Waning Quality of Abd/Flank Pain: Aching, Burning Location of Abdominal Onset: Epigastric Abdominal Pain Radiation: No radiation Activities of Onset of Abd/Fla: None Associated Symptoms of Abd/Fla: Denies symptoms Timing of Abdominal Pain: Still present Chest Pain Chief Complaint: Heart burn Chief Complaint of Hip/Injury: Right hip Hip Injury/Pain Occurred: Other (Right hip pain after hip replacement last year) Past Medical History Cardiac: No pertinent Hx Pulmonary: No pertinent Hx Central Nervous System: No pertinent Hx GI: No pertinent Hx Hemotology/Oncology: No pertinent Hx Hepatobiliary: No pertinent Hx Psychiatric: Anxiety Musculoskeletal: No pertinent Hx Rheumotologic: No pertinent Hx Infectious Disease: No peritnent Hx ENT: No pertinent Hx Renal/: No pertinent Hx Endocrine: No pertinent Hx Dermatology: No pertinent Hx Past Surgical History: , Total hip replacement, Tubal ligation Family History: No pertinent Hx Patient Family History: Osteoporosis G8 MOTHER, Smoker: Positive Alocohol: None Drugs: Marijuana Lives with: With family Review of Systems Constitutional: No symptom reported Ears, Nose, & Throat: No symptom reported Eyes: No symptom reported Pulmonary/Respiratory: No symptom reported Cardiovascular: No symptom reported Gastrointestinal: Abdominal Pain Genitourinary: No symptom reported Musculoskeletal: No symptom reported Skin: No symptom reported Psychiatric: Depressed, Emotional problem, Anxiety Endocrine: No symptom reported Hemotologic/Lymphatic: No symptom reported H&P Exam Vital Signs Vital Signs Date Time Temp Pulse Resp B/P (MAP) Pulse Ox O2 Delivery O2 Flow Rate FiO2 07/03/24 10:56 98.8 89 18 127/77 (94) 93 98.8 07/03/24 10:27 Room Air* 0 21 General Appeara: Well developed, Well nourished, Normal Appearance Head Exam: Normal inspection Neck Exam: Normal inspection Eye Exam: bilateral eye Normal inspection, bilateral eye PERRL, bilateral eye EOMI Ear Exam: bilateral ear Auricle normal, bilateral ear Canal normal, bilateral ear TM normal Mouth: Normal Inspection Pulmonary/Respiratory: Normal inspection, Normal breath sounds Cardiovascular/Chest: Normal inspection, Regular rate Abdominal Exam: Normal bowel sounds, Soft Abdominal Pain Onset Location: Epigastric Rectal Exam: Deferred Back Exam: Normal inspection Pelvic Exam: Other (Declined) Shoulder Exam: Normal inspection, Non-tender, Normal ROM Elbow/Forearm Exam: Normal inspection Wrist Exam: Normal inspection Hand Exam: Normal inspection Hip exam: Bone tenderness Legs: bilateral leg non-tender, bilateral leg normal inspection, bilateral leg normal range of motion, bilateral leg no evidence of injury Knees: bilateral knee non-tender, bilateral knee normal inspection, bilateral knee normal range of motion, bilateral knee no evidence of injury APPLICATION SOFTWARE ENGINEER Exam: Normal hearing, Normal speech, PERRL Motor/Sensory: Normal sensory function, Normal motor function, Negative [place] i's sign Neuro/Mental St: Alert, Oriented, Depressed affect Appearance: Appropriate appearance, Appropriate insight Coordination/Gait: Normal finger->nose, Normal gait, Negative Romberg's sign Skin Exam: Normal inspection, Normal color, Warm/dry Lymphatic: Normal inspection Labs/Xrays Labs Test 07/03/24 05:05 07/02/24 23:51 07/02/24 21:47 07/02/24 13:44 Range/Units White Blood Count 6.4 4.4-10.8 10^3/uL Red Blood Count 5.20 4.0-5.20 10^6/uL Hemoglobin 15.0 12.2-16.2 g/dL Hematocrit 46.8 #H 36.0-46.0 % Mean Corpuscular Volume 89.9 80.0-100.0 fL Mean Corpuscular Hemoglobin 28.9 28.0-32.0 pg Mean Corpuscular Hemoglobin Concent 32.1 32.0-36.0 g/dL Red Cell Distribution Width 14.7 H 11.8-14.3 % Platelet Count 200 140-450 10^3/uL Mean Platelet Volume 7.2 6.9-10.8 fL Neutrophils (%) (Auto) 48.3 37.0-80.0 % Lymphocytes (%) (Auto) 41.1 10.0-50.0 % Monocytes (%) (Auto) 8.2 0.0-12.0 % Eosinophils (%) (Auto) 2.2 0.0-7.0 % Basophils (%) (Auto) 0.2 0.0-2.0 % Neutrophils # (Auto) 3.1 1.6-8.6 10 ^3/uL Lymphocytes # (Auto) 2.6 0.4-5.4 10 ^3/uL Monocytes # (Auto) 0.5 0-1.3 10 ^3/uL Eosinophils # (Auto) 0.1 0-0.8 10 ^3/uL Basophils # (Auto) 0 0-0.2 10 ^3/uL Nucleated Red Blood Cells 0.2 % Sodium Level 141 136-145 mmol/L Potassium Level 3.9 3.5-5.1 mmol/L Chloride Level 109 H 98-107 mmol/L Carbon Dioxide Level 24 20-31 mmol/L Anion Gap 8 5-15 Blood Urea Nitrogen 7 L 9-23 mg/dL Creatinine 0.50 L 0.550-1.02 mg/dL Glomerular Filtration Rate Calc 101 >90 mL/min BUN/Creatinine Ratio 14.0 10.0-20.0 Serum Glucose 88 74-106 mg/dL Calcium Level 9.4 8.7-10.4 mg/dL Magnesium Level 2.1 1.6-2.6 mg/dL Total Bilirubin 0.8 0.2-1.0 mg/dL Aspartate Amino Transferase (AST) 23 13-40 U/L Alanine Aminotransferase (ALT) 22 7-40 U/L Alkaline Phosphatase 58 46-116 U/L Total Protein 6.0 5.7-8.2 g/dL Albumin 4.0 3.2-4.8 g/dL Vitamin B12 Level 533 211-911 pg/mL Vitamin D 25-Hydroxy 53.9 30.0-100 ng/mL Free Thyroxine (T4) Calculated 1.20 0.89-1.76 ng/dL Total Triiodothyronine (TT3) 1.05 0.60-1.81 ng/mL Ammonia 23 11-32 umol/L Plasma/Serum Blood Alcohol < 3.0 <10 mg/dL Troponin I High Sensitivity < 3 L </=34 ng/L Lipase 56 H 12-53 U/L Thyroid Stimulating Hormone (TSH) 0.48 L 0.55-4.78 uIU/mL Test 07/02/24 10:24 07/02/24 10:06 Range/Units B-Type Natriuretic Peptide 61.75 0-100 pg/mL Urine Color Light-yellow Yellow Urine Clarity Clear Clear Urine pH 5.0 5.0-9.0 Urine Specific [place] 1.014 1.001-1.035 Urine Protein Negative Negative Urine Ketones Negative Negative Urine Blood Trace H Negative /uL Urine Nitrite Negative Negative Urine Bilirubin Negative Negative Urine Urobilinogen Normal Negative mg/dL Urine Leukocyte Esterase Negative Negative /uL Urine RBC 1 0 - 4 /hpf Urine Microscopic WBC 1 0-5 /HPF Urine Squamous Epithelial Cells Few <5 /hpf Urine Bacteria Few H None Seen /hpf Urine Mucus Few None Seen Urine Glucose Normal Normal mg/dL Urine Opiates Screen Neg NEGATIVE Urine Fentanyl Screen Neg NEGATIVE Urine Barbiturates Screen Neg NEGATIVE Urine Phencyclidine Screen Neg NEGATIVE Urine Amphetamines Screen Neg NEGATIVE Urine Benzodiazepines Screen Neg NEGATIVE Urine Cocaine Screen Neg NEGATIVE Urine Cannabinoids Screen Pos NEGATIVE Assessment/Plan Primary Diagnosis 1. Epigastric pain 2. GERD 3. Anxiety and depression 4. Marijuana use disorder Plan No acute as400 administrator findings. Patient declined pelvic exam CT scan neg for any acute pelvic process. Recommend f/u outpatient for as400 administrator pelvic exam. DELI CUTTER SLICER will sign off. Plan discussed with: Patient Date of Service: Jul 03, 2024 Billing Provider: MECHELLE CONNER DO Common Visit Codes: CONSULT ONLY Consultation Codes: [id number] CONSULT <45MIN MECHELLE CONNER DO Jul 03, 2024 13:14
--- NOTE | 2024-07-03 15:29 | DVHPNRES ---
Progress Note Date Seen: Jul 03, 2024 Resident Creating Document: EMMANUEL MARISCAL RESIDENT Medical Necessity Reason Pt with a Central, PICC or Fol: No Subjective Review of Systems OPP,LEOPOLDO Mata 68-year-old female with no significant PMH except anxiety presented to the ED with the chief complaints of abdominal pain. Patient reported she has been experiencing epigastric abdominal pain for almost 6 months, eating makes it better, weight loss over 6 months 15-20 lb. Patient reported due to her being busy with work and unable to take her to hospital until now. Patient denies fever, nausea, vomiting, chest pain, shortness of breath, palpitations, dizziness and other acute associated symptoms. Troponins were WNL, BNP WNL. GI was consulted. Social history: Lives with family. Smokes less than 1 pack per day for the past 20 years. Denies alcohol or drugs. Patient seen and examined at bedside. Epigastric tenderness. Started Protonix and Carafate. Objective vital signs Vital Sign Date Time Temp Pulse Resp B/P (MAP) Pulse Ox O2 Delivery O2 Flow Rate FiO2 07/03/24 13:00 98.8 84 16 121/72 (88) 94 98.8 07/03/24 10:27 Room Air* 0 21 Total Intake and Output 07/02/24 07/02/24 07/03/24 15:00 23:00 07:00 Intake Total 1060 ml 420 ml Balance 1060 ml 420 ml medications Current Medications Medications Dose Ordered Sig/Dileep Route Start Time Stop Time Status Last Admin Dose Admin Sodium Chloride 10 ml Q8HR IV 07/02/24 22:00 07/03/24 12:14 10 ML Sodium Chloride 1,000 ml @ 60 mls/hr [id number] IV 07/02/24 21:15 07/03/24 12:13 60 MLS/HR Ondansetron HCl 4 mg Q4HP PRN IV 07/02/24 21:15 Acetaminophen 650 mg Q6HP PRN PO 07/02/24 21:15 07/03/24 01:23 650 MG Nitroglycerin 0.4 mg Q5MINP PRN SL 07/02/24 21:15 Morphine Sulfate 2 mg Q30M PRN IV 07/02/24 21:15 Pantoprazole Sodium 40 mg DAILY IV 07/03/24 10:00 07/03/24 10:15 40 MG Lorazepam 1 mg Q6HP PRN IV 07/02/24 21:30 Sucralfate 1 gm QID@0600,1130,1700,2200 PO 07/03/24 07:15 07/03/24 11:17 1 GM Examination Patient lying in bed, in no acute distress General: Cachectic-looking, afebrile, palor, mucosae are moist Cardiovascular: Regular S1 and S2. No murmurs, gallops or rubs. No JVD elevation. No pedal edema Respiratory: Normal B/L air entry on room air. Clear lung sounds on auscultation Abdomen: Soft, epigastric tenderness, nondistended, normoactive bowel sounds, no rebound tenderness, no organomegaly, no masses Genitourinary: Deferred MSK/skin: Mobilizes 4 limbs. Skin is dry and warm Neurological: No motor, no sensitive deficits, normal speech. Pupils are isocoric and reactive. Psych/Mental Status: A/Ox3 laboratory and microbiology Laboratory Tests 07/03/24 05:05 Test 07/03/24 05:05 Range/Units Serum Glucose 88 74-106 mg/dL Labs and/or images reviewed: Labs reviewed by me, Image(s) reviewed by me Problem List/Assessment/Plan Problem List/Assessment/Plan Epigastric abdominal pain secondary to likely peptic ulcer disease CT abdomen unremarkable Protonix 40 mg daily Carafate q.i.d. started On clear liquid diet Stool occult pending No lifetime history of EGD/colonoscopy GI consulted-recommended EGD, patient denies endoscopy. Outpatient follow up in GI clinic in 4 weeks. OBGYN consulted and the patient declined pelvic exam. Follow up outpatient for gynecologic exam. Unintentional weight loss Chronic nicotine dependence Marijuana dependence Counseled regarding cessation for more than 22 minutes Anxiety Ativan p.r.n. Diet: Full liquids advanced as tolerated Goals of care discussed with the patient for more than 28 minute, full code status Case discussed with Dr. Gibson Plan discussed with: Patient My Orders My Orders Orders - EMMANUEL MARISCAL RESIDENT Procedure Category Date Status Time Sucralfate Susp PHA 07/03/24 In Process (Carafate Susp) 07:15 Stool Occult Blood LAB 07/03/24 Logged 07:11 Date of Service: Jul 03, 2024 Billing Provider: JUAN JOSÉ MATA MD Common Visit Codes: [id number] INP/OBS CARE(HIGH) EMMANUEL MARISCAL RESIDENT Jul 03, 2024 15:29 JUAN JOSÉ MATA MD Jul 04, 2024 23:40
[2024-07-03 16:51] VITALS: BP 123/55; PULSE 97; RESP 16; TEMP 98.2; O2SAT 93
[2024-07-03 21:00] VITALS: BP 111/44; PULSE 81; RESP 17; TEMP 98.1; O2SAT 92
[2024-07-04 00:37] VITALS: BP 111/65; PULSE 72; RESP 15; TEMP 98; O2SAT 93
[2024-07-04 05:00] VITALS: BP_SYST 116; BP_SYST 120; BP_DIAS 67; BP_DIAS 71; PULSE 117; PULSE 85; RESP 16; RESP 19; TEMP 97.5; TEMP 99.4; O2SAT 91; O2SAT 92
[2024-07-04 07:13] LABS: Anion Gap 9 (5-15); Carbon Dioxide 21 mmol/L (20-31); Potassium 4.1 mmol/L (3.5-5.1); Sodium 139 mmol/L (136-145)
[2024-07-04 07:14] LABS: Calcium 9.1 mg/dL (8.7-10.4)
[2024-07-04 07:19] LABS: BUN/Creatinine Ratio 9.8 (10.0-20.0); Glucose 92 mg/dL (74-106)
[2024-07-04 07:20] LABS: Blood Urea Nitrogen 5 mg/dL (9-23); Chloride 109 mmol/L (98-107)
[2024-07-04 07:35] LABS: Basophils # (auto) 0 10 ^3/uL (0-0.2); Basophils % (auto) 0.2 % (0.0-2.0); Eosinophils # (auto) 0.3 10 ^3/uL (0-0.8); Eosinophils % (auto) 4.1 % (0.0-7.0); Hematocrit 45.5 % (36.0-46.0); Lymphocytes # (auto) 2.4 10 ^3/uL (0.4-5.4); Lymphocytes % (auto) 36.3 % (10.0-50.0); Mean Corpuscular Hgb Conc. 32.9 g/dL (32.0-36.0); Mean Corpuscular Volume 91.2 fL (80.0-100.0); Monocytes # (auto) 0.6 10 ^3/uL (0-1.3); Monocytes % (auto) 8.9 % (0.0-12.0); Neutrophils # (auto) 3.4 10 ^3/uL (1.6-8.6); Neutrophils % (auto) 50.5 % (37.0-80.0); Nucleated Red Blood Cells % 0.2 %; Platelet Count (auto) 121 10^3/uL (140-450); Red Blood Cells 4.99 10^6/uL (4.0-5.20); Red Cell Distribution Width 14.5 % (11.8-14.3); White Blood Cell 6.7 10^3/uL (4.4-10.8)
[2024-07-04 08:00] VITALS: RESP 18
[2024-07-04 09:00] VITALS: BP 113/53; PULSE 83; RESP 20; TEMP 97.8; O2SAT 93
--- NOTE | 2024-07-04 09:47 | DVHDSRES ---
Discharge Summary Date of Admission Resident Creating Document: EMMANUEL MARISCAL RESIDENT Jul 02, 2024 at 21:06 Date of Discharge: Jul 04, 2024 Labs/Diagnostic Data: Laboratory Results Test 07/04/24 06:00 07/03/24 05:05 07/02/24 23:51 07/02/24 21:47 White Blood Count 6.7 10^3/uL (4.4-10.8) Red Blood Count 4.99 10^6/uL (4.0-5.20) Hemoglobin 15.0 g/dL (12.2-16.2) Hematocrit 45.5 % (36.0-46.0) Mean Corpuscular Volume 91.2 fL (80.0-100.0) Mean Corpuscular Hemoglobin 30.0 pg (28.0-32.0) Mean Corpuscular Hemoglobin Concent 32.9 g/dL (32.0-36.0) Red Cell Distribution Width 14.5 % (11.8-14.3) Platelet Count 121 10^3/uL (140-450) Mean Platelet Volume 7.5 fL (6.9-10.8) Neutrophils (%) (Auto) 50.5 % (37.0-80.0) Lymphocytes (%) (Auto) 36.3 % (10.0-50.0) Monocytes (%) (Auto) 8.9 % (0.0-12.0) Eosinophils (%) (Auto) 4.1 % (0.0-7.0) Basophils (%) (Auto) 0.2 % (0.0-2.0) Neutrophils # (Auto) 3.4 10 ^3/uL (1.6-8.6) Lymphocytes # (Auto) 2.4 10 ^3/uL (0.4-5.4) Monocytes # (Auto) 0.6 10 ^3/uL (0-1.3) Eosinophils # (Auto) 0.3 10 ^3/uL (0-0.8) Basophils # (Auto) 0 10 ^3/uL (0-0.2) Nucleated Red Blood Cells 0.2 % Sodium Level 139 mmol/L (136-145) Potassium Level 4.1 mmol/L (3.5-5.1) Chloride Level 109 mmol/L (98-107) Carbon Dioxide Level 21 mmol/L (20-31) Anion Gap 9 (5-15) Blood Urea Nitrogen 5 mg/dL (9-23) Creatinine 0.51 mg/dL (0.550-1.02) Glomerular Filtration Rate Calc 101 mL/min (>90) BUN/Creatinine Ratio 9.8 (10.0-20.0) Serum Glucose 92 mg/dL (74-106) Calcium Level 9.1 mg/dL (8.7-10.4) Magnesium Level 2.1 mg/dL (1.6-2.6) Total Bilirubin 0.8 mg/dL (0.2-1.0) Aspartate Amino Transferase (AST) 23 U/L (13-40) Alanine Aminotransferase (ALT) 22 U/L (7-40) Alkaline Phosphatase 58 U/L (46-116) Total Protein 6.0 g/dL (5.7-8.2) Albumin 4.0 g/dL (3.2-4.8) Vitamin B12 Level 533 pg/mL (211-911) Vitamin D 25-Hydroxy 53.9 ng/mL (30.0-100) Free Thyroxine (T4) Calculated 1.20 ng/dL (0.89-1.76) Total Triiodothyronine (TT3) 1.05 ng/mL (0.60-1.81) Ammonia 23 umol/L (11-32) Plasma/Serum Blood Alcohol < 3.0 mg/dL (<10) Test 07/02/24 13:44 07/02/24 10:24 07/02/24 10:06 Troponin I High Sensitivity < 3 ng/L (</=34) Lipase 56 U/L (12-53) Thyroid Stimulating Hormone (TSH) 0.48 uIU/mL (0.55-4.78) B-Type Natriuretic Peptide 61.75 pg/mL (0-100) Urine Color Light-yellow (Yellow) Urine Clarity Clear (Clear) Urine pH 5.0 (5.0-9.0) Urine Specific [place] 1.014 (1.001-1.035) Urine Protein Negative (Negative) Urine Ketones Negative (Negative) Urine Blood Trace /uL (Negative) Urine Nitrite Negative (Negative) Urine Bilirubin Negative (Negative) Urine Urobilinogen Normal mg/dL (Negative) Urine Leukocyte Esterase Negative /uL (Negative) Urine RBC 1 /hpf (0 - 4) Urine Microscopic WBC 1 /HPF (0-5) Urine Squamous Epithelial Cells Few /hpf (<5) Urine Bacteria Few /hpf (None Seen) Urine Mucus Few (None Seen) Urine Glucose Normal mg/dL (Normal) Urine Opiates Screen Neg (NEGATIVE) Urine Fentanyl Screen Neg (NEGATIVE) Urine Barbiturates Screen Neg (NEGATIVE) Urine Phencyclidine Screen Neg (NEGATIVE) Urine Amphetamines Screen Neg (NEGATIVE) Urine Benzodiazepines Screen Neg (NEGATIVE) Urine Cocaine Screen Neg (NEGATIVE) Urine Cannabinoids Screen Pos (NEGATIVE) Other Laboratory Tests 07/04/24 06:00 Brief Hx & Hospital Course: OPP,LEOPOLDO Mata 68-year-old female with no significant PMH except anxiety presented to the ED with the chief complaints of abdominal pain. Patient reported she has been experiencing epigastric abdominal pain for almost 6 months, eating makes it better, weight loss over 6 months 15-20 lb. Patient reported due to her being busy with work and unable to take her to hospital until now. Patient denies fever, nausea, vomiting, chest pain, shortness of breath, palpitations, dizziness and other acute associated symptoms. Troponins were WNL, BNP WNL. GI was consulted. No lifetime history of EGD/colonoscopy. Social history: Lives with family. Smokes less than 1 pack per day for the past 20 years. Denies alcohol or drugs. Patient seen and examined at bedside. Epigastric tenderness. Started Protonix and Carafate. During the hospitalization, CT abdomen was completed which was unremarkable. patient was started on Protonix 40 mg daily and Carafate q.i.d.. GI was consulted, recommended upper endoscopy with the patient denied. Detailed discussions with questions risks and benefits were advised. She says will research more about EGD and oxygen she will do it as outpatient. She was started on clear liquid diet which was advanced as tolerated to full liquid and regular diet. OBGYN was consulted and the patient declined pelvic exam. Outpatient follow up for OBGYN was recommended. 07/04-patient is abdominal pain is resolved, , she feels much better, widely and hemodynamically stable and is therefore being discharged home with the following recommendation: Follow up with in director strategic account management as outpatient within 2 weeks Follow up with PCP within 2 weeks Follow up with [facility] clinic within 2 weeks Outpatient follow up with OBgyn within 2 weeks Continue pantoprazole and Carafate daily Discharge diagnosis: Epigastric abdominal pain secondary to likely peptic ulcer disease Unintentional weight loss Chronic nicotine dependence Marijuana dependence Anxiety Operations or Procedures ORDERING PHYSICIAN: RODO GAMEZ MD PROCEDURE(s): ABPLIV - CT AB PEL WITH IV CON ONLY REASON: abdominal pain ORDER NUMBER(s): [id number], ACCESSION NUMBER(s): [id number] Procedure: CT CT AB PEL WITH IV CON ONLY 07/02/2024 12:31 PM Indication: abdominal pain Comparison Study: None Technique: Axial images were obtained and reformatted in coronal and sagittal planes. All CT scans at this medical facility are performed using dose modulation techniques as appropriate to a performed exam including the following: Automated exposure control was utilized; adjustment of the MA and/or KV according to patient size; and use of iterative reconstruction technique. CT Dose: CTDI volume is 5.14 mGy. Dose-length product is 247.2 mGy*cm FINDINGS: Lower Chest: Unremarkable. Hepatobiliary: Moderate hepatomegaly. No focal lesion. No intrahepatic ductal dilatation. Spleen: Unremarkable. Pancreas: Unremarkable. Adrenal Glands: Unremarkable. tract: The kidneys are normal in size bilaterally without hydronephrosis . A 2 mm nonobstructing stone seen in the lower pole of the right kidney. Few subcentimeter left renal cyst noted. The urinary bladder is unremarkable. GI tract: The stomach is grossly normal in appearance. No evidence of small bowel obstruction. The large bowel is unremarkable. The appendix is normal. Lymphatics: No mesenteric, retroperitoneal or periportal lymphadenopathy. Vasculature: Aorta is normal in caliber. Scattered calcified plaques are noted. Pelvic Organs: Unremarkable Bones/soft tissues: Orthopedic hardware is seen in the right proximal femur. Mild degenerative grade 1 anterolisthesis of L4 on L5. Mild chronic appearing anterior compression deformity T11. Severe reduction of L5-S1 disc height. Other: None. IMPRESSION: 1. No CT evidence for acute intra-abdominal or intrapelvic process. ATED BY: ABENA PANCHAL MD DICTATED DATE/TIME: 07/02/24 1402 SIGNED BY: ABENA PANCHAL MD SIGNED DATE/TIME: 07/02/24 1402 CC: Condition at Discharge: Stable Final Diagnosis/Problems List Epigastric abdominal pain secondary to likely peptic ulcer disease Unintentional weight loss Chronic nicotine dependence Marijuana dependence Anxiety Discharge Disposition: Home Discharge Instruct/Medications Diet: See Comment Diet comment: Avoid fatty/fried food Activity: No Restrictions, As Tolerated Follow Up/Referral: Follow up with director strategic account management as outpatient within 2 weeks Follow up with discharge clinic appointment within 2 weeks Follow up with primary care physician within 7 days Medications: Continue tablet Protonix 40 mg daily once before breakfast Continue Carafate suspension 4 times a day Discharge Statement: "Patient was advised to return to the ER or call 911 if any headaches, dizziness, shortness of breath, chest pain, abdominal pain, bleeding, fevers, or worsening of medical condition. Patient was counseled about treatment plan, medications, possible side effects, patientverbalized understanding. All questions were answered to the best of my ability. This discharge took greater then 30 minutes in planning, reviewing documentation, counseling the patient, and discussing with other team members." ASSESSMENT ASSESSMENT Assessment Epigastric abdominal pain secondary to likely peptic ulcer disease Date of Service: Jul 04, 2024 Billing Provider: JUAN JOSÉ MATA MD Common Visit Codes: 36018-EJE/OBS DISCH DAY >30min EMMANUEL MARISCAL Jul 04, 2024 09:47 JUAN JOSÉ MATA MD Jul 05, 2024 00:01
[2024-07-04] MEDS ORDERED: PANT40T PO (09:56)
[2024-07-04] MEDS ORDERED: SUCR1TAB31 OR (09:56)
[2024-07-04 10:44] VITALS: TEMP 36.6
== END 2024-07-04 13:10 | disposition home or self-care (01) | DRG 384 ==
LOC: ER 09:42 → OVERFLOW 21:06 → EAST 07-03 09:47
PROVIDERS: ADMIT Student in an Organized Health Care Education/Training Program; ATTEND Emergency Medicine
DX: K27.9 Peptic ulcer, site unspecified, unspecified as acute or chronic, without hemorrhage or perforation (principal); M48.54XA Collapsed vertebra, not elsewhere classified, thoracic region, initial encounter for fracture; K21.9 Gastro-esophageal reflux disease without esophagitis; F32.A Depression, unspecified; N23 Unspecified renal colic; F41.9 Anxiety disorder, unspecified; F17.210 Nicotine dependence, cigarettes, uncomplicated; F12.20 Cannabis dependence, uncomplicated; Z79.1 Long term (current) use of non-steroidal anti-inflammatories (NSAID); Z79.899 Other long term (current) drug therapy; Z71.6 Tobacco abuse counseling; Z82.62 Family history of osteoporosis
CPT/HCPCS: 36415; 71045; 74177; 80048; 80053; 80307; 80320; 81001; 82140; 82306; 82607; 83690; 83735; 83880; 84439; 84443; 84480; 84484; 85025; 93005; 99291; G0378; J2470